=== PATIENT | female | born 1955 | race Caucasian/White ===

== ENCOUNTER 2022-01-14 02:17 | Emergency (ER) | payer MEDICARE, SELFPAY ==
[2022-01-14] VITALS (13 sets, daily range): BP systolic 98–135; BP diastolic 65–83; PULSE 79–90; RESP 14–33; TEMP 36.9; O2SAT 94–98
--- NOTE | ~2022-01-14 | XR_ITS ---
XR chest 2V DATE: 01/14/2022 02:59 INDICATION: Chest pain TECHNIQUE: PA and lateral views COMPARISON: None FINDINGS: Normal heart size. No hilar or mediastinal enlargement. Mild bilateral apical capping. No pulmonary infiltrate or consolidation, pleural effusion or pulmonar y vascular congestion or pneumothorax. Osteopenia. IMPRESSION: No active cardiopulmonary disease Osteopenia Reviewed, dictated and finalized at location A.
--- NOTE | 2022-01-14 02:19 | ECG_ITS ---
Measurements Intervals [place] Rate: 91 P: -22 UT: 136 QRS: 17 QRSD: 80 T: 54 QT: 361 QTc: 446 Interpretive Statements SINUS RHYTHM NORMAL ECG Electronically Signed On 01-14-2022 6:22:50 CDT by Jalil Christianson D.O.
--- NOTE | 2022-01-14 02:34 | ED.CHESTPAIN ---
HPI - Chest Pain General Chief Complaint: Chest Pain Stated Complaint: Chest pain Time Seen by Provider: 01/14/22 02:22 History of Present Illness HPI narrative: 66-year-old female presenting to the emergency department for evaluation of substernal chest pain that started approximately 5 PM. Patient states since 5 PM she has had a substernal chest pressure that does not radiate. Patient states she was at rest when the pain started. Patient does have a prior history of cardiac ablation in 2017 due to SVT, patient did have a 2-week Holter monitor by. Cardiology was negative. Patient denies any prior history of GA. Patient did have a stress test in 2010. Patient denies any prior history of PE or DVT. Related Data Home Medications Medication Instructions Recorded Confirmed levothyroxine 50 mcg tablet tablet 01/14/22 Allergies Allergy/AdvReac Type Severity Reaction Status Date / Time No Known Allergies Allergy Verified 01/14/22 02:19 Review of Systems Review of Systems: CONSTITUTIONAL: Denies fever, chills, or sweats. EYES: Denies visual changes, redness, or discharge. ENT: Denies rhinorrhea, congestion, sore throat, or otalgia. CARDIOVASCULAR: See HPI RESPIRATORY: Denies cough or dyspnea. GASTROINTESTINAL: Denies abdominal pain, nausea, vomiting, or diarrhea. GENITOURINARY: Denies dysuria or hematuria. SKIN: Denies rash or itching. MUSCULOSKELETAL: Denies back pain, joint pain, or myalgia. NEUROLOGIC: Denies headache, numbness, or weakness. Exam Narrative: APPEARANCE: Well appearing, no pain, no distress, well-nourished. HEAD: normocephalic, atraumatic. EYES: PERRLA/EOMI, conjunctivae clear. NOSE: Normal no drainage THROAT: Pharynx clear, no exudate. NECK: Supple. No adenopathy, no masses. RESPIRATORY: Airway patent, respirations nonlabored. Clear to auscultation bilaterally, no rales, rhonchi, wheezing. CARDIOVASCULAR: Regular rate and rhythm without murmurs rubs or gallops. ABDOMINAL: Soft, nontender, nondistended, normal bowel sounds MUSCULOSKELETAL: Moves all extremities. Strength/ROM intact, No edema, No calf tenderness. NEURO: Alert. Cranial nerves II through XII intact. Grossly intact SKIN: Warm, dry. Normal Color Course Course Emergency Course: EKG showed no evidence of acute STEMI. Patient's serial troponins were negative. Chest x-ray showed no acute cardiopulmonary abnormality. D-dimer was negative. Patient does still have a substernal chest pressure. Pain seems reproducible to palpation. Patient with the results of the work-up. Patient was courage of close follow-up with her primary care physician. Patient was also educated on reasons to return to the emergency room. All question concerns were addressed. Vital Signs Vital signs: Vital Signs Temperature 98.5 F 01/14/22 02:22 Pulse Rate 90 01/14/22 02:22 Respiratory Rate 16 01/14/22 02:22 Blood Pressure 135/83 01/14/22 02:22 Pulse Oximetry 97 01/14/22 02:22 Oxygen Delivery Room Air 01/14/22 02:22 Temperature 98.5 F 01/14/22 02:22 Pulse Rate 88 01/14/22 07:10 Respiratory Rate 18 01/14/22 07:10 Blood Pressure 106/67 01/14/22 07:10 Pulse Oximetry 97 01/14/22 07:10 Oxygen Delivery Room Air 01/14/22 03:01 MDM - Chest Pain Lab Data Attestation: I reviewed the patient's lab results. Result diagrams: 01/14/22 02:46 01/14/22 02:46 Labs: Lab Results 01/14/22 01/14/22 01/14/22 Range/Units 02:46 02:46 02:46 WBC 8.8 (4.5-10.0) K/mm3 RBC 4.39 (4.2-5.4) M/mm3 Hgb 13.3 (12.0-15.0) g/dL Hct 40.0 (37.0-47.0) % MCV 91.1 (80-100) fl MCH 30.3 (26-34) pg MCHC 33.3 (32-36) g/dl RDW 13.3 (11.5-14.5) % Plt Count 231 (150-375) k/mm3 MPV 8.7 (7.4-10.4) fl Immature Gran % (Auto) 0.2 (0-0.5) % Neut % (Auto) 51.1 (45.5-73.1) % Lymph % (Auto) 39.7 (18.3-44.2) % [place] % (Auto) 8.0 (2.6-8.5) % Eos % (Auto) 0.8
[2022-01-14] MEDS: NITROGLYCERIN SL 0.4 MG TABLET SUBLINGUAL (02:47)
[2022-01-14 02:54] LABS: Basophils Percent Auto 0.2 % (0.2-1.2); Eosinophils Absolute Auto 0.1 K/mm3 (0-0.3); Eosinophils Percent Auto 0.8 % (0-4.4); Hemoglobin 13.3 g/dL (12.0-15.0); Immature Granulocyte Absolute 0.02 K/mm3 (0.00-0.031); Immature Granulocyte Percent A 0.2 % (0-0.5); Lymphocytes Absolute Auto 3.48 K/mm3 (0.9-3.2); Lymphocytes Percent Auto 39.7 % (18.3-44.2); Mean Corpuscular HGB Conc 33.3 g/dl (32-36); Mean Corpuscular Hemoglobin 30.3 pg (26-34); Mean Corpuscular Volume 91.1 fl (80-100); Mean Platelet Volume 8.7 fl (7.4-10.4); Monocytes Absolute Auto 0.7 K/mm3 (0.1-0.6); Neutrophils Absolute Auto 4.5 K/mm3 (1.3-6.7); Neutrophils Percent Auto 51.1 % (45.5-73.1); Platelet Count Result 231 k/mm3 (150-375); Red Blood Count 4.39 M/mm3 (4.2-5.4); Red Cell Distribution Width 13.3 % (11.5-14.5); White Blood Count 8.8 K/mm3 (4.5-10.0)
[2022-01-14 03:04] LABS: Alanine Aminotransferase 16 U/L (6-35); Albumin Level 4.2 g/dL (3.5-5.1); Alkaline Phosphatase 63 U/L (38-126); Anion Gap 7 mmol/L (8-16); Aspartate Amino Transferase 30 U/L (14-36); Bilirubin,Total 0.6 mg/dL (0.2-1.3); Blood Urea Nitrogen 23 mg/dL (7-17); Calcium 9.2 mg/dL (8.4-10.2); Carbon Dioxide 26 mmol/L (22-30); Chloride 106 mmol/L (98-107); Estimated CRCL calculation 44 ml/min; Estimated Glomerular Filt Rate > 60; Glucose 112 mg/dL (65-110); Lipase 178 U/L (23-300); Potassium 3.9 mmol/L (3.4-5.0); Sodium 139 mmol/L (137-145)
[2022-01-14 03:15] LABS: Troponin I < 0.012 ng/mL (0.000-0.034)
--- NOTE | 2022-01-14 03:23 | PC.NURSE ---
2 does of nitro given over 10 minutes total of 0.8 mg. pt pain from 7 to 210. third dose of nitro withheld due to pt bp, EDP stan aware. No new orders at this time.
[2022-01-14 03:40] LABS: Partial Thromboplastin Time 27.8 SECONDS (22.3-36.8); Prothrombin Time 12.6 Seconds (11.1-14.7)
[2022-01-14 03:50] LABS: D Dimer 0.42 ug/mL (<0.48)
[2022-01-14 03:55] LABS: SARS-CoV-2 RNA PCR Negative
[2022-01-14 05:40] LABS: Troponin I < 0.012 ng/mL (0.000-0.034)
[2022-01-14] MEDS: BELLADONNA ALK/PHENOB ELIX 10 ML, MAG HYDROX/ALUMINUM HYD/SIMETH 30 ML, LIDOCAINE HCL 2... PO (06:03)
== END 2022-01-14 07:07 | disposition home or self-care (01) ==
PROVIDERS: Emergency Provider Emergency Medicine; PCP Student in an Organized Health Care Education/Training Program
DX: R07.89 Other chest pain (principal); Z20.822 Contact with and (suspected) exposure to COVID-19; M85.88 Other specified disorders of bone density and structure, other site
CPT/HCPCS: 36415; 71046; 80053; 83690; 84484; 85025; 85380; 85610; 85730; 93005; 99284; A9270; C9803; U0003; U0005

== ENCOUNTER → 2022-04-27 13:14 | Outpatient (CLI) | payer MEDICARE, SELFPAY ==
--- NOTE | ~2022-04-27 | DEXA_ITS ---
Bone Density Report Name: JAMAL JOEL Age: 66 Sex: Female Ethnicity: White Date of : 1955 Indication: postmenopausal; screening for osteoporosis; Referring Provider: Shereen, Iván Study: Bone densitometry was performed. Exam Date: April 27, 2022 Accession number: [id number] Bone Density: Region BMD T-score Z-score Classification AP Spine (L1-L4) 0.886 -1.5 0.5 Osteopenia Femoral Neck (Left) 0.700 -1.3 0.3 Osteopenia Total Hip (Left) 0.841 -0.8 0.5 Normal Femoral Neck (Right) 0.693 -1.4 0.3 Osteopenia Total Hip (Right) 0.829 -0.9 0.4 Normal Total Hip Mean 0.835 -0.9 0.5 Normal World Health Organization criteria for BMD impression classify patients as: Normal (T-score at or above -1.0), Osteopenia (T-score between -1.0 and -2.5), or Osteoporosis (T-score at or below -2.5). 10-year Fracture Risk(1): Major Osteoporotic Fracture 9.2% Hip Fracture 1.0% Reported Risk Factors: [place] (), Neck BMD=0.693, BMI=27.7 (1) FRAX(R) Version 3.08. Fracture probability calculated for an untreated patient. Fracture probability may be lower if the patient has received treatment. Clinical Information Provided by Patient: Has used the following medications: Vitamin D Patient maximum height was 60 Menopause Age: 45 No regular weight bearing exercise Onset of menses at age 10 Number of children 2 Impression: The patient has low bone mass, based on the Total Spine T-score. The patient has an estimated ten-year risk of hip fracture of 1% and an estimated ten-year risk of major fracture of 9.2%, based on the WHO FRAX algorithm. Discussion: BONE DENSITY IS LOW AT ONE OR MORE SKELETAL SITES. This patient's lowest T-score is low at one or more skeletal sites. It meets the World Health Organization's (WHO) criteria for ?low bone mass? (T-score between -1.0 and -2.5). The patient's 10-year risk of fracture as calculated by FRAX is less than the threshold where pharmacological therapy is recommended by the National Osteoporosis Foundation (NOF). However, all treatment decisions require clinical judgment and consideration of individual patient factors, including patient preferences, comorbidities, previous drug use, risk factors not captured in the FRAX model (e.g., frailty, falls, vitamin D deficiency, increased bone turnover, interval significant decline in bone density) and possible under or overestimation of fracture risk by FRAX. The patient should follow a healthful lifestyle (good nutrition with adequate calcium and vitamin D, and appropriate weight-bearing exercise). Follow-Up: Consider repeating this study in 2 to 3 years to reassess this patient's status, or sooner if there is some new clinical indication. Reported by: KAYODE on 04/27/2022 1:53:00 PM.
== END ==
PROVIDERS: PCP Student in an Organized Health Care Education/Training Program; Visit Provider Student in an Organized Health Care Education/Training Program
DX: Z78.0 Asymptomatic menopausal state (principal); M85.88 Other specified disorders of bone density and structure, other site; M85.852 Other specified disorders of bone density and structure, left thigh; M85.851 Other specified disorders of bone density and structure, right thigh
CPT/HCPCS: 77080

== ENCOUNTER 2024-12-03 10:28 | Outpatient (CLI) | payer MEDICARE, SELFPAY ==
--- NOTE | ~2024-12-03 | DEXA_ITS ---
Bone Density Report Name: JAMAL JOEL Age: 69 Sex: Female Ethnicity: White Date of : 1955 Indication: postmenopausal; screening for osteoporosis; Referring Provider: YENIFER, REGGIE Study: Bone densitometry was performed. Exam Date: December 03, 2024 Accession number: [id number] Bone Density: Region BMD T-score Z-score Classification AP Spine(L1-L4) 0.909 -1.3 0.9 Osteopenia Femoral Neck (Left) 0.646 -1.8 0.0 Osteopenia Total Hip (Left) 0.843 -0.8 0.7 Normal Femoral Neck (Right) 0.638 -1.9 -0.1 Osteopenia Total Hip (Right) 0.831 -0.9 0.6 Normal Total Hip Mean 0.837 -0.9 0.7 Normal World Health Organization criteria for BMD impression classify patients as: Normal (T-score at or above -1.0), Osteopenia (T-score between -1.0 and -2.5), or Osteoporosis (T-score at or below -2.5). 10-year Fracture Risk(1): Major Osteoporotic Fracture 11% Hip Fracture 1.9% Reported Risk Factors: [place] (), Neck BMD=0.646, BMI=27.7 (1) FRAX(R) Version 3.08. Fracture probability calculated for an untreated patient. Fracture probability may be lower if the patient has received treatment. Clinical Information Provided by Patient: Has used the following medications: Vitamin D Patient maximum height was 60 Menopause Age: 45 No regular weight bearing exercise Does not regularly consume dairy products Onset of menses at age 10 Number of children 2 Impression: The patient has low bone mass, based on the Right Femoral Neck T-score. The patient has an estimated ten-year risk of hip fracture of 1.9% and an estimated ten-year risk of major fracture of 11%, based on the WHO FRAX algorithm. Discussion: BONE DENSITY IS LOW AT ONE OR MORE SKELETAL SITES. This patient's lowest T-score is low at one or more skeletal sites. It meets the World Health Organization's (WHO) criteria for ?low bone mass? (T-score between -1.0 and -2.5). The patient's 10-year risk of fracture as calculated by FRAX is less than the threshold where pharmacological therapy is recommended by the National Osteoporosis Foundation (NOF). However, all treatment decisions require clinical judgment and consideration of individual patient factors, including patient preferences, comorbidities, previous drug use, risk factors not captured in the FRAX model (e.g., frailty, falls, vitamin D deficiency, increased bone turnover, interval significant decline in bone density) and possible under or overestimation of fracture risk by FRAX. The patient should follow a healthful lifestyle (good nutrition with adequate calcium and vitamin D, and appropriate weight-bearing exercise). Follow-Up: Consider repeating this study in 2 to 3 years to reassess this patient's status, or sooner if there is some new clinical indication. Reported by: KAYODE on 12/03/2024 11:03:00 AM. Reviewed, dictated and finalized at location A.
== END 2024-12-03 10:29 | disposition home or self-care (01) ==
LOC: ANHIMG 10:30
PROVIDERS: PCP Student in an Organized Health Care Education/Training Program; Visit Provider Student in an Organized Health Care Education/Training Program
DX: M85.89 Other specified disorders of bone density and structure, multiple sites (principal); Z78.0 Asymptomatic menopausal state
CPT/HCPCS: 77080